=== PATIENT | female | born 1975 | race Caucasian/White ===

== ENCOUNTER 2017-06-17 17:42 | Emergency (ER) | payer OTHER ==
[~2017-06-17] VITALS: Ht 167.6 cm; Wt 72.0 kg
[2017-06-17] MEDS ORDERED: OXYcodone/APAP 5/325MG TABLET ONE (18:15)
[2017-06-17] MEDS ORDERED: ONDANSETRON ODT 4 MG ONE (18:15)
[2017-06-17 18:22] VITALS: BP 100/74
[2017-06-17] MEDS ORDERED: OXYcodone/APAP 5/325MG TABLET PO ONE (18:30)
[2017-06-17] MEDS ORDERED: ONDANSETRON ODT 4 MG PO ONE (18:30)
== END 2017-06-17 19:04 | disposition home or self-care (01) ==
LOC: ED 18:58
DX: S42.022A Displaced fracture of shaft of left clavicle, initial encounter for closed fracture (principal); S22.32XA Fracture of one rib, left side, initial encounter for closed fracture; S70.12XA Contusion of left thigh, initial encounter; V29.9XXA Motorcycle rider (driver) (passenger) injured in unspecified traffic accident, initial encounter; Y93.55 Activity, bike riding; Y92.410 Unspecified street and highway as the place of occurrence of the external cause; Y99.8 Other external cause status
CPT/HCPCS: 71020; 73030; 99284; Q0162

== ENCOUNTER 2017-06-24 14:07 | Observation (INO) | payer OTHER ==
[~2017-06-24] VITALS: Ht 167.6 cm; Wt 68.0 kg
[2017-06-24] MEDS ORDERED: LACTATED RINGERS 1,000 ML IV SCH ×3 (14:58→20:30)
[2017-06-24 15:01] VITALS: BP 123/82
[2017-06-24 15:09] LABS: HCG UR LOT HCG7030192
[2017-06-24] MEDS ORDERED: MULT-6 PO (15:32)
[2017-06-24] MEDS ORDERED: b12 (15:32)
[2017-06-24] MEDS ORDERED: fish oil (15:32)
[2017-06-24 15:42] LABS: HCG UR OBC PASS
[2017-06-24] MEDS ORDERED: BUPIVACAINE/PF 0.5% ONE (16:01)
[2017-06-24] MEDS ORDERED: EPINEPHRINE 1 MG/ML, 1ML ONE (16:01)
[2017-06-24] MEDS ORDERED: ROPIvacaine/PF 0.2%, 20 ML ONE (16:11)
[2017-06-24] MEDS ORDERED: FENTANYL PF 250 MCG/5ML ONE (16:24)
[2017-06-24] MEDS ORDERED: ROPIvacaine/PF 0.5%, 20 ML ONE (16:27)
[2017-06-24] MEDS ORDERED: FENTANYL PF 100 MCG/2ML ONE ×2 (16:55→17:54)
[2017-06-24] MEDS ORDERED: PROPOFOL 10 MG/ML, 20ML ONE (16:56)
[2017-06-24] MEDS ORDERED: DEXAMETHASONE 4 MG/ML, 1ML ONE ×4 (16:57)
[2017-06-24] MEDS ORDERED: ONDANSETRON 2MG/ML, 2ML ONE (16:57)
[2017-06-24] MEDS ORDERED: CEFAZOLIN 1,000 MG ONE ×2 (16:57)
[2017-06-24] MEDS ORDERED: KETOROLAC 30 MG/1 ML ONE (16:59)
[2017-06-24] MEDS ORDERED: FENTANYL PF 100 MCG/2ML IV PRN (17:00)
[2017-06-24] MEDS ORDERED: OXYcodone 5 MG/5 ML ORAL.SOL UDC PO PRN (17:00)
[2017-06-24] MEDS ORDERED: ONDANSETRON 2MG/ML, 2ML IVPush PRN (17:00)
[2017-06-24] MEDS ORDERED: OXYcodone 5 MG/5 ML ORAL.SOL UDC ONE (17:54)
[2017-06-24] MEDS ORDERED: HYDROmorphone 1 MG/ML, 1ML ONE ×2 (18:12→18:36)
[2017-06-24] MEDS: HYDROmorphone 1 MG/ML, 1ML IV PRN ×3 (18:13→18:32)
[2017-06-24] MEDS ORDERED: ONDANSETRON 2MG/ML, 2ML IV PRN (20:30)
[2017-06-24] MEDS ORDERED: OXYcodone/APAP 5/325MG TABLET PO PRN (20:30)
== END 2017-06-24 22:42 | disposition home or self-care (01) ==
LOC: OR 14:07 → 4NOR 19:23
PROVIDERS: ADMIT Orthopaedic Surgery; ATTEND Orthopaedic Surgery
DX: S42.002A Fracture of unspecified part of left clavicle, initial encounter for closed fracture (principal); V28.4XXA Motorcycle driver injured in noncollision transport accident in traffic accident, initial encounter; Y93.89 Activity, other specified; Y92.89 Other specified places as the place of occurrence of the external cause; Y99.8 Other external cause status
CPT/HCPCS: 23515; 73000; 76001; 81025; 96374; C1713; G0378; J0690; J1100; J1170; J1885; J2405; J2704; J2795; J3010; J7120; J0171; J3490

== ENCOUNTER → 2018-06-12 | Outpatient (CLI) | payer OTHER ==
[~2018-06-12] MED LIST: B CO1TAB14 PO; GLUC1CAP18 PO; MULT-6 PO; OMEG-76 PO; b12; fish oil; vitamin d3 PO
== END | disposition home or self-care (01) ==
LOC: STAR 15:35
PROVIDERS: ATTEND Orthopaedic Surgery
DX: Z02.9 Encounter for administrative examinations, unspecified (principal)

== ENCOUNTER 2018-06-18 12:05 | Day surgery (SDC) | payer OTHER ==
[2018-06-12 15:46] VITALS: BP 108/75
[~2018-06-18] VITALS: Ht 167.6 cm; Wt 69.3 kg
[2018-06-18] MEDS ORDERED: LACTATED RINGERS 1,000 ML IV SCH (12:17)
[2018-06-18 12:47] VITALS: BP 108/75
[2018-06-18] MEDS ORDERED: FENTANYL PF 250 MCG/5ML ONE (13:06)
[2018-06-18] MEDS ORDERED: MIDAZOLAM 1 MG/ML, 2ML ONE (13:06)
[2018-06-18] MEDS ORDERED: CEFAZOLIN 1,000 MG ONE ×2 (13:07)
[2018-06-18] MEDS ORDERED: SODIUM CHLORIDE 0.9% PF 10ML ONE (13:07)
[2018-06-18] MEDS ORDERED: ONDANSETRON 2MG/ML, 2ML ONE (13:07)
[2018-06-18] MEDS ORDERED: DEXAMETHASONE 4 MG/ML, 1ML ONE ×2 (13:07)
[2018-06-18] MEDS ORDERED: PROPOFOL 10 MG/ML, 20ML ONE (13:08)
[2018-06-18 13:11] LABS: HCG UR SG 1.016 (1.003-1.030)
[2018-06-18] MEDS ORDERED: BUPIVACAINE/PF 0.5% ONE (14:14)
[2018-06-18] MEDS ORDERED: EPINEPHRINE 1 MG/ML, 1ML ONE (14:15)
[2018-06-18] MEDS ORDERED: SCOPOLAMINE PATCH, 1.5MG PATCH.TD72 TD ONE (14:29)
[2018-06-18] MEDS ORDERED: ROPIvacaine/PF 0.5%, 30 ML ONE (14:29)
[2018-06-18] MEDS ORDERED: FENTANYL PF 100 MCG/2ML IV PRN (14:30)
[2018-06-18] MEDS ORDERED: PROMETHAZINE 25 MG SUPP PR PRN (14:30)
[2018-06-18] MEDS ORDERED: PROMETHAZINE 25 MG/ML, 1ML IV PRN (14:30)
[2018-06-18] MEDS ORDERED: OXYcodone 5 MG/5 ML ORAL.SOL UDC PO PRN (14:30)
[2018-06-18] MEDS ORDERED: ONDANSETRON ODT 8 MG PO PRN (14:30)
[2018-06-18] MEDS ORDERED: MEPERIDINE/PF 25MG/0.5ML IVPush PRN (14:30)
[2018-06-18] MEDS ORDERED: PROMETHAZINE 25 MG/ML, 1ML IM PRN ×2 (14:30)
[2018-06-18] MEDS ORDERED: LABETALOL 5MG/ML, 20ML IV PRN (14:30)
[2018-06-18] MEDS ORDERED: ONDANSETRON 2MG/ML, 2ML IV PRN (14:30)
[2018-06-18] MEDS ORDERED: ACETAMINOPHEN 325 MG TABLET PO PRN (14:30)
[2018-06-18] MEDS ORDERED: hydrALAzine 20 MG/ML, 1ML IV PRN (14:30)
[2018-06-18] MEDS ORDERED: PROMETHAZINE 12.5 MG SUPP PR PRN (14:30)
[2018-06-18] MEDS ORDERED: MORPHINE SULFATE 4 MG/ML, 1ML IVPush PRN (14:30)
[2018-06-18] MEDS ORDERED: HYDROmorphone 1 MG/ML, 1ML IV PRN (14:30)
[2018-06-18] MEDS ORDERED: ROCURONIUM 10MG/ML,5ML ONE (14:32)
[2018-06-18] MEDS ORDERED: GLYCOPYRROLATE 0.2MG/1ML, 5ML ONE (14:33)
[2018-06-18] MEDS ORDERED: NEOSTIGMINE 1 MG/ML, 10ML ONE (14:33)
[2018-06-18] MEDS ORDERED: OXYcodone 5 MG/5 ML ORAL.SOL UDC ONE (16:04)
== END 2018-06-18 18:25 | disposition home or self-care (01) ==
LOC: OUT 12:05
PROVIDERS: ATTEND Orthopaedic Surgery
DX: Z47.2 Encounter for removal of internal fixation device (principal); L90.5 Scar conditions and fibrosis of skin; Z79.899 Other long term (current) drug therapy
CPT/HCPCS: 20680; 81025; J0690; J1100; J2250; J2405; J2704; J2710; J2795; J3010; J3490; J7120; J0171